=== PATIENT | male | born 1960 | race Caucasian/White ===

== ENCOUNTER 2018-04-26 13:33 | Inpatient (IN) | payer OTHER ==
[2018-04-26 17:31] VITALS: BMI 25.8
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
[2018-04-26] MEDS ORDERED: hydrOXYzine PAMOATE 25 MG CAPSULE (FP) PO PRN (19:45)
[2018-04-26] MEDS ORDERED: METHOCARBAMOL 500 MG TABLET PO PRN (19:45)
[2018-04-26] MEDS ORDERED: BISMUTH SUBSALICYLATE 524 MG/30 ML UD PO PRN (19:45)
[2018-04-26] MEDS ORDERED: MAGNESIUM CITRATE 300 ML BOTTLE PO PRN (19:45)
[2018-04-26] MEDS ORDERED: MAGNESIUM HYDROX 2400MG/30ML ORAL SUSPENSION 30 ML CUP PO PRN (19:45)
[2018-04-26] MEDS ORDERED: chlordiazePOXIDE HCL 25 MG CAPSULE PO PRN (19:45)
[2018-04-26] MEDS ORDERED: MELATONIN 5 MG TABLETS PO PRN (19:45)
[2018-04-26] MEDS ORDERED: MAG HYDROX/AL HYDROX/SIMETH 30 ML UNIT-DOSE CUP PO PRN (19:45)
[2018-04-26] MEDS ORDERED: IBUPROFEN 400 MG TABLET (FP) PO PRN (19:45)
[2018-04-26] MEDS ORDERED: MENTHOL/PHENOL 1 EACH UD MM PRN (19:45)
[2018-04-26] MEDS ORDERED: ACETAMINOPHEN 325 MG TABLET (FP) PO PRN ×2 (19:45)
[2018-04-26] MEDS ORDERED: chlordiazePOXIDE HCL 25 MG CAPSULE PO ONE (20:00)
[2018-04-26] MEDS: THIAMINE HCL 100 MG TABLET (FP) PO SCH (21:29)
[2018-04-26] MEDS: chlordiazePOXIDE HCL 25 MG CAPSULE PO SCH (22:07)
[2018-04-27] MEDS: chlordiazePOXIDE HCL 25 MG CAPSULE PO SCH ×4 (06:54→22:49)
[2018-04-27] MEDS: PRENATAL VITAMINS W/ FOLIC ACID TABLET (FP) PO SCH (10:30)
--- NOTE | 2018-04-27 10:45 | EKG ---
Test Reason : Blood Pressure : / mmHG Vent. Rate : 060 BPM Atrial Rate : 060 BPM P-R Int : 168 ms QRS Dur : 080 ms QT Int : 466 ms P-R-T Axes : 100 032 -20 degrees QTc Int : 466 ms NORMAL SINUS RHYTHM MINIMAL VOLTAGE CRITERIA FOR LVH, MAY BE NORMAL VARIANT NONSPECIFIC T WAVE ABNORMALITY ABNORMAL ECG NO PREVIOUS ECGS AVAILABLE Confirmed by Jeremías Belle MD ([id number]) on 04/27/2018 10:44:52 AM Referred By: AYAKA MCMAHAN Confirmed By:Jeremías Belle MD
[2018-04-27 11:22] LABS: HEMATOCRIT 37.8 % (35.4-49); MCH 34.1 pg (25.7-33.7); MCHC 34.3 g/dl (32.0-35.9); MEAN CELL VOLUME 99.3 fl (80-96); MEAN PLT VOLUME 8.5 fl (7.5-11.1); PLATELET COUNT 303 K/MM3 (134-434); RBC 3.81 M/mm3 (4.00-5.60); RDW 13.1 % (11.9-15.9); WHITE BLOOD COUNT 3.8 K/mm3 (4.0-10.0)
[2018-04-27 12:16] LABS: ANION GAP 5 MMOL/L (8-16); BLOOD UREA NITROGEN 11 mg/dL (7-18); CALCIUM 8.9 mg/dL (8.5-10.1); CHLORIDE 103 mmol/L (98-107); CO2 28 mmol/L (21-32); GLUCOSE,RANDOM 78 mg/dL (74-106); POTASSIUM 4.1 mmol/L (3.5-5.1); SODIUM 136 mmol/L (136-145)
[2018-04-27 12:17] LABS: ALBUMIN 3.5 g/dl (3.4-5.0); BILIRUBIN,TOTAL 0.5 mg/dL (0.2-1); TOT PROT 7.2 g/dl (6.4-8.2)
[2018-04-27 12:18] LABS: ALK PHOS 52 U/L (45-117); SGPT/ALT 21 U/L (13-61)
[2018-04-27 12:32] LABS: SGOT/AST 65 U/L (15-37)
--- NOTE | 2018-04-27 14:52 | PN ---
[facility] CIWA - CIWA Score Nausea/Vomitin-No Nausea/No Vomiting Muscle Tremors: 2 Anxiety: 1-Mildly Anxious Agitation: 3 Paroxysmal Sweats: 1-Minimal Palms Moist Orientation: 1-Uncertain about Date Tacttile Disturbances: 0-None Auditory Disturbances: 0-None Visual Disturbances: 0-None Headache: 1-Very Mild CIWA-Ar Total Score: 9 S Progress Note (SOAP) Subjective: reporting that he is doing well feeling ok today but tired Objective: 04/27/18 14:51 Vital Signs Temperature 97.6 F 04/27/18 13:44 Pulse Rate 94 H 04/27/18 13:44 Respiratory Rate 18 04/27/18 13:44 Blood Pressure 103/64 04/27/18 13:44 O2 Sat by Pulse Oximetry (%) Laboratory Last Values WBC 3.8 K/mm3 (4.0-10.0) L 04/27/18 07:30 RBC 3.81 M/mm3 (4.00-5.60) L 04/27/18 07:30 Hgb 13.0 GM/dL (11.7-16.9) 04/27/18 07:30 Hct 37.8 % (35.4-49) 04/27/18 07:30 MCV 99.3 fl (80-96) H 04/27/18 07:30 MCH 34.1 pg (25.7-33.7) H 04/27/18 07:30 MCHC 34.3 g/dl (32.0-35.9) 04/27/18 07:30 RDW 13.1 % (11.9-15.9) 04/27/18 07:30 Plt Count 303 K/MM3 (134-434) 04/27/18 07:30 MPV 8.5 fl (7.5-11.1) 04/27/18 07:30 Sodium 136 mmol/L (136-145) 04/27/18 07:30 Potassium 4.1 mmol/L (3.5-5.1) 04/27/18 07:30 Chloride 103 mmol/L (98-107) 04/27/18 07:30 Carbon Dioxide 28 mmol/L (21-32) 04/27/18 07:30 Anion Gap 5 MMOL/L (8-16) L 04/27/18 07:30 BUN 11 mg/dL (7-18) 04/27/18 07:30 Creatinine 1.0 mg/dL (0.55-1.3) 04/27/18 07:30 Creat Clearance w eGFR 77.30 (>60) 04/27/18 07:30 Random Glucose 78 mg/dL (74-106) 04/27/18 07:30 Calcium 8.9 mg/dL (8.5-10.1) 04/27/18 07:30 Total Bilirubin 0.5 mg/dL (0.2-1) 04/27/18 07:30 AST 65 U/L (15-37) H 04/27/18 07:30 ALT 21 U/L (13-61) 04/27/18 07:30 Alkaline Phosphatase 52 U/L (45-117) 04/27/18 07:30 Total Protein 7.2 g/dl (6.4-8.2) 04/27/18 07:30 Albumin 3.5 g/dl (3.4-5.0) 04/27/18 07:30 RPR Titer Nonreactive (NONREACTIVE) 04/27/18 07:30 lab noted Assessment: 04/27/18 14:51 withdrawal sx Plan: continue detox
[2018-04-27] MEDS: THIAMINE HCL 100 MG TABLET (FP) PO SCH (22:49)
[2018-04-28] MEDS: chlordiazePOXIDE HCL 25 MG CAPSULE PO SCH ×3 (06:34→18:18)
[2018-04-28] MEDS: PRENATAL VITAMINS W/ FOLIC ACID TABLET (FP) PO SCH (10:59)
--- NOTE | 2018-04-28 13:45 | PN ---
[facility] CIWA - CIWA Score Nausea/Vomitin-No Nausea/No Vomiting Muscle Tremors: 1-None Visible, but [place] Anxiety: 1-Mildly Anxious Agitation: 1-Slight > Activity Paroxysmal Sweats: 1-Minimal Palms Moist Orientation: 0-Oriented Tacttile Disturbances: 0-None Auditory Disturbances: 0-None Visual Disturbances: 0-None Headache: 0-None Present CIWA-Ar Total Score: 4 B[facility] Progress Note (SOAP) Subjective: feeling better more energy well rested talking about aftercare with staff Objective: 04/28/18 13:52 Vital Signs Temperature 98.6 F 04/28/18 10:31 Pulse Rate 74 04/28/18 10:31 Respiratory Rate 16 04/28/18 10:31 Blood Pressure 99/70 04/28/18 10:31 O2 Sat by Pulse Oximetry (%) Laboratory Last Values WBC 3.8 K/mm3 (4.0-10.0) L 04/27/18 07:30 RBC 3.81 M/mm3 (4.00-5.60) L 04/27/18 07:30 Hgb 13.0 GM/dL (11.7-16.9) 04/27/18 07:30 Hct 37.8 % (35.4-49) 04/27/18 07:30 MCV 99.3 fl (80-96) H 04/27/18 07:30 MCH 34.1 pg (25.7-33.7) H 04/27/18 07:30 MCHC 34.3 g/dl (32.0-35.9) 04/27/18 07:30 RDW 13.1 % (11.9-15.9) 04/27/18 07:30 Plt Count 303 K/MM3 (134-434) 04/27/18 07:30 MPV 8.5 fl (7.5-11.1) 04/27/18 07:30 Sodium 136 mmol/L (136-145) 04/27/18 07:30 Potassium 4.1 mmol/L (3.5-5.1) 04/27/18 07:30 Chloride 103 mmol/L (98-107) 04/27/18 07:30 Carbon Dioxide 28 mmol/L (21-32) 04/27/18 07:30 Anion Gap 5 MMOL/L (8-16) L 04/27/18 07:30 BUN 11 mg/dL (7-18) 04/27/18 07:30 Creatinine 1.0 mg/dL (0.55-1.3) 04/27/18 07:30 Creat Clearance w eGFR 77.30 (>60) 04/27/18 07:30 Random Glucose 78 mg/dL (74-106) 04/27/18 07:30 Calcium 8.9 mg/dL (8.5-10.1) 04/27/18 07:30 Total Bilirubin 0.5 mg/dL (0.2-1) 04/27/18 07:30 AST 65 U/L (15-37) H 04/27/18 07:30 ALT 21 U/L (13-61) 04/27/18 07:30 Alkaline Phosphatase 52 U/L (45-117) 04/27/18 07:30 Total Protein 7.2 g/dl (6.4-8.2) 04/27/18 07:30 Albumin 3.5 g/dl (3.4-5.0) 04/27/18 07:30 RPR Titer Nonreactive (NONREACTIVE) 04/27/18 07:30 lab noted Assessment: 04/28/18 13:53 withdrawal sx Plan: continue detox
[2018-04-28] MEDS: chlordiazePOXIDE HCL 10 MG CAPSULE PO SCH (22:35)
[2018-04-28] MEDS: THIAMINE HCL 100 MG TABLET (FP) PO SCH (22:35)
[2018-04-28] MEDS ORDERED: chlordiazePOXIDE HCL 10 MG CAPSULE PO PRN (23:00)
[2018-04-29] MEDS: chlordiazePOXIDE HCL 10 MG CAPSULE PO SCH ×4 (06:12→23:25)
[2018-04-29] MEDS: PRENATAL VITAMINS W/ FOLIC ACID TABLET (FP) PO SCH (10:58)
--- NOTE | 2018-04-29 15:23 | PN ---
[facility] CIWA - CIWA Score Nausea/Vomitin-No Nausea/No Vomiting Muscle Tremors: 1-None Visible, but [place] Anxiety: 0-No Anxiety, at Ease Agitation: 1-Slight > Activity Paroxysmal Sweats: No Perspiration Orientation: 0-Oriented Tacttile Disturbances: 0-None Auditory Disturbances: 0-None Visual Disturbances: 0-None Headache: 0-None Present CIWA-Ar Total Score: 2 S Progress Note (SOAP) Subjective: reporting that he had good experience detox at [facility] patient [facility] to [facility] Objective: 04/29/18 15:31 Vital Signs Temperature 98.1 F 04/29/18 13:45 Pulse Rate 88 04/29/18 13:45 Respiratory Rate 18 04/29/18 13:45 Blood Pressure 103/72 04/29/18 13:45 O2 Sat by Pulse Oximetry (%) Laboratory Last Values WBC 3.8 K/mm3 (4.0-10.0) L 04/27/18 07:30 RBC 3.81 M/mm3 (4.00-5.60) L 04/27/18 07:30 Hgb 13.0 GM/dL (11.7-16.9) 04/27/18 07:30 Hct 37.8 % (35.4-49) 04/27/18 07:30 MCV 99.3 fl (80-96) H 04/27/18 07:30 MCH 34.1 pg (25.7-33.7) H 04/27/18 07:30 MCHC 34.3 g/dl (32.0-35.9) 04/27/18 07:30 RDW 13.1 % (11.9-15.9) 04/27/18 07:30 Plt Count 303 K/MM3 (134-434) 04/27/18 07:30 MPV 8.5 fl (7.5-11.1) 04/27/18 07:30 Sodium 136 mmol/L (136-145) 04/27/18 07:30 Potassium 4.1 mmol/L (3.5-5.1) 04/27/18 07:30 Chloride 103 mmol/L (98-107) 04/27/18 07:30 Carbon Dioxide 28 mmol/L (21-32) 04/27/18 07:30 Anion Gap 5 MMOL/L (8-16) L 04/27/18 07:30 BUN 11 mg/dL (7-18) 04/27/18 07:30 Creatinine 1.0 mg/dL (0.55-1.3) 04/27/18 07:30 Creat Clearance w eGFR 77.30 (>60) 04/27/18 07:30 Random Glucose 78 mg/dL (74-106) 04/27/18 07:30 Calcium 8.9 mg/dL (8.5-10.1) 04/27/18 07:30 Total Bilirubin 0.5 mg/dL (0.2-1) 04/27/18 07:30 AST 65 U/L (15-37) H 04/27/18 07:30 ALT 21 U/L (13-61) 04/27/18 07:30 Alkaline Phosphatase 52 U/L (45-117) 04/27/18 07:30 Total Protein 7.2 g/dl (6.4-8.2) 04/27/18 07:30 Albumin 3.5 g/dl (3.4-5.0) 04/27/18 07:30 RPR Titer Nonreactive (NONREACTIVE) 04/27/18 07:30 lab noted Assessment: 04/29/18 15:32 withdrawal sx Plan: continue detox
[2018-04-29] MEDS: THIAMINE HCL 100 MG TABLET (FP) PO SCH (23:25)
[2018-04-30 09:41] VITALS: BP 90/53; PULSE 88; TEMP 97.7
[2018-04-30] MEDS: PRENATAL VITAMINS W/ FOLIC ACID TABLET (FP) PO SCH (10:21)
[2018-04-30] MEDS: chlordiazePOXIDE HCL 10 MG CAPSULE PO SCH (10:21)
--- NOTE | 2018-04-30 13:09 | PN ---
[facility] Progress Note (SOAP) Subjective: pt doing well continue detox protocol- to day last day O: Vital Signs - 24 hr 04/29/18 04/29/18 04/29/18 13:45 17:51 21:20 Temperature 98.1 F 96.1 F L 99.4 F Pulse Rate 88 75 70 Respiratory 18 18 18 Rate Blood Pressure 103/72 111/66 102/58 L 04/30/18 04/30/18 04/30/18 00:30 03:30 06:33 Temperature 96.8 F L Pulse Rate 72 Respiratory 18 18 18 Rate Blood Pressure 101/65 04/30/18 09:41 Temperature 97.7 F Pulse Rate 88 Respiratory 18 Rate Blood Pressure 90/53 L Laboratory Tests 04/27/18 04/27/18 04/27/18 07:30 07:30 07:30 WBC 3.8 L RBC 3.81 L Hgb 13.0 Hct 37.8 MCV 99.3 H MCH 34.1 H MCHC 34.3 RDW 13.1 Plt Count 303 MPV 8.5 Sodium 136 Potassium 4.1 Chloride 103 Carbon Dioxide 28 Anion Gap 5 L BUN 11 Creatinine 1.0 Creat Clearance w eGFR 77.30 Random Glucose 78 Calcium 8.9 Total Bilirubin 0.5 AST 65 H ALT 21 Alkaline Phosphatase 52 Total Protein 7.2 Albumin 3.5 RPR Titer Nonreactive a/p: continue detox protocol- d/c tomorrow
--- NOTE | 2018-04-30 13:21 | DS ---
[facility] Detox Discharge Summary Admission Date: 04/26/18 Discharge Date: 04/30/18 - History Present History: Alcohol Dependence Pertinent Past History: pt here for alcohol detox- completed: going to [facility] rehab today. - Physical Exam Results Vital Signs: Vital Signs Temperature 97.7 F 04/30/18 09:41 Pulse Rate 88 04/30/18 09:41 Respiratory Rate 18 04/30/18 09:41 Blood Pressure 90/53 L 04/30/18 09:41 O2 Sat by Pulse Oximetry (%) - Treatment Hospital Course: Detox Protocol Followed, Detoxed Safely, Responded well, Discharged Condition Good, Rehab Referral Accepted - Medication Discharge Medications: Ambulatory Orders Unobtainable 04/26/18 - AMA Did Patient Leave Against Medical Advice: No
== END 2018-04-30 13:38 | disposition other institution (70) | DRG 775 ==
LOC: YASAS 13:33 → Y3N 19:53
PROVIDERS: ADMIT Surgery; ATTEND Surgery
PROC: HZ2ZZZZ Detoxification Services for Substance Abuse Treatment (ICD-10-PCS; principal; 2018-04-26)
DX: F10.230 Alcohol dependence with withdrawal, uncomplicated (principal); F32.9 Major depressive disorder, single episode, unspecified; I10 Essential (primary) hypertension; K21.9 Gastro-esophageal reflux disease without esophagitis; N40.0 Benign prostatic hyperplasia without lower urinary tract symptoms; M54.5 Low back pain; G89.29 Other chronic pain; Z86.19 Personal history of other infectious and parasitic diseases
CPT/HCPCS: 36415; 80053; 85027; 86593; 93005; 93010

== ENCOUNTER 2018-04-30 13:57 | Inpatient (IN) | payer OTHER ==
[2018-04-30] MEDS ORDERED: PNEUMOC 13-VAL CONJ-DIP CRM/PF 0.5 ML DISP.SYRIN IM ONE (14:39)
[2018-04-30] MEDS ORDERED: MAG HYDROX/AL HYDROX/SIMETH 30 ML UNIT-DOSE CUP PO PRN (15:27)
[2018-04-30] MEDS ORDERED: IBUPROFEN 400 MG TABLET (FP) PO PRN (15:27)
[2018-04-30] MEDS ORDERED: MENTHOL/PHENOL 1 EACH UD MM PRN (15:27)
[2018-04-30] MEDS ORDERED: guaiFENesin 200 MG/10 ML 10 ML UNIT-DOSE CUPS PO PRN (15:27)
[2018-04-30] MEDS ORDERED: LOPERAMIDE HCL 2 MG CAPSULE PO PRN (15:27)
[2018-04-30] MEDS ORDERED: MAGNESIUM HYDROX 2400MG/30ML ORAL SUSPENSION 30 ML CUP PO PRN (15:27)
[2018-04-30] MEDS ORDERED: ACETAMINOPHEN 325 MG TABLET (FP) PO PRN (15:27)
[2018-04-30] MEDS ORDERED: MAGNESIUM CITRATE 300 ML BOTTLE PO PRN (15:27)
[2018-04-30] MEDS ORDERED: P-EPHED 60MG/TRIPROLIDI 2.5MG TABLET PO PRN (15:27)
--- NOTE | 2018-04-30 15:28 | HP ---
[facility] Rehab Assess/Revision - Admission History Admitted to Rehab from: [facility] Date of Admission to Rehab: 04/30/2018 - Vital signs Vital Signs: Vital Signs Period Temp Pulse Resp BP Sys/Segundo Pulse Ox Last 24 Hr 98.6 F 89 16 103/66 - Findings Detox History & Physical reviewed: Yes Concur with findings: Yes Inpatient Rehab Admission - Rehab Decision to Admit Inpatient rehab admission?: Yes - Initial Determination Are CD services needed?: Yes Free of communicable disease: Yes Not in need of hospitalization: Yes - Rehab Admission Criteria Previous failed treatment: Yes Poor recovery environment: Yes Comorbidities: Yes Lacks judgement: No Patient is meeting Inpatient Rehab admission criteria:: Yes
[2018-04-30] MEDS ORDERED: hydrOXYzine PAMOATE 50 MG CAPSULE (FP) PO PRN (15:29)
[2018-04-30] MEDS ORDERED: cloNIDine HCL 0.1 MG TABLET PO PRN (15:29)
[2018-04-30] MEDS: THIAMINE HCL 100 MG TABLET (FP) PO SCH (21:40)
[2018-04-30] MEDS ORDERED: MELATONIN 5 MG TABLETS PO PRN (22:00)
[2018-05-01] MEDS: PRENATAL VITAMINS W/ FOLIC ACID TABLET (FP) PO SCH (09:40)
[2018-05-01] MEDS ORDERED: FLU VACCINE QUAD 60 MCG/0.5 ML (MDV 18-19) IM ONE (12:00)
[2018-05-01] MEDS ORDERED: PNEUMOCOCCAL 23 VACCINE 0.5 ML VIAL IM ONE (12:00)
[2018-05-01] MEDS: THIAMINE HCL 100 MG TABLET (FP) PO SCH (21:38)
[2018-05-02] MEDS: PRENATAL VITAMINS W/ FOLIC ACID TABLET (FP) PO SCH (09:26)
[2018-05-02] MEDS: THIAMINE HCL 100 MG TABLET (FP) PO SCH (21:24)
[2018-05-03] MEDS: PRENATAL VITAMINS W/ FOLIC ACID TABLET (FP) PO SCH (10:30)
[2018-05-03] MEDS: THIAMINE HCL 100 MG TABLET (FP) PO SCH (22:19)
[2018-05-04] MEDS: PRENATAL VITAMINS W/ FOLIC ACID TABLET (FP) PO SCH (10:00)
[2018-05-04] MEDS: THIAMINE HCL 100 MG TABLET (FP) PO SCH (21:55)
[2018-05-05] MEDS: PRENATAL VITAMINS W/ FOLIC ACID TABLET (FP) PO SCH (09:54)
[2018-05-05] MEDS: THIAMINE HCL 100 MG TABLET (FP) PO SCH (21:23)
[2018-05-06] MEDS: PRENATAL VITAMINS W/ FOLIC ACID TABLET (FP) PO SCH (10:05)
[2018-05-06] MEDS: THIAMINE HCL 100 MG TABLET (FP) PO SCH (21:16)
[2018-05-07] MEDS: PRENATAL VITAMINS W/ FOLIC ACID TABLET (FP) PO SCH (10:00)
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
[2018-05-07] MEDS: THIAMINE HCL 100 MG TABLET (FP) PO SCH (21:13)
[2018-05-08] MEDS: PRENATAL VITAMINS W/ FOLIC ACID TABLET (FP) PO SCH (10:43)
[2018-05-08] MEDS: THIAMINE HCL 100 MG TABLET (FP) PO SCH (22:29)
[2018-05-09] MEDS: PRENATAL VITAMINS W/ FOLIC ACID TABLET (FP) PO SCH (10:28)
[2018-05-09] MEDS: THIAMINE HCL 100 MG TABLET (FP) PO SCH (22:07)
[2018-05-10] MEDS: PRENATAL VITAMINS W/ FOLIC ACID TABLET (FP) PO SCH (10:23)
[2018-05-10] MEDS: THIAMINE HCL 100 MG TABLET (FP) PO SCH (21:46)
[2018-05-11] MEDS: PRENATAL VITAMINS W/ FOLIC ACID TABLET (FP) PO SCH (09:48)
[2018-05-11] MEDS: THIAMINE HCL 100 MG TABLET (FP) PO SCH (21:37)
[2018-05-12] MEDS: PRENATAL VITAMINS W/ FOLIC ACID TABLET (FP) PO SCH (10:04)
[2018-05-12] MEDS: THIAMINE HCL 100 MG TABLET (FP) PO SCH (21:38)
[2018-05-13 07:13] VITALS: BP 98/63; PULSE 86; TEMP 98.3
--- NOTE | 2018-05-13 08:24 | PN ---
[facility] Progress Note (SOAP) Subjective: Client to be discharged today. Objective: 05/13/18 08:22 Vital Signs (72 hours) 05/11/18 05/11/18 05/11/18 00:30 03:30 06:46 Temperature 97.5 F L Pulse Rate 71 Respiratory 18 18 18 Rate Blood Pressure 114/66 05/12/18 05/12/18 05/13/18 00:30 07:10 00:30 Temperature 97.9 F Pulse Rate 73 Respiratory 18 18 20 Rate Blood Pressure 109/67 05/13/18 05/13/18 03:30 07:12 Temperature 98.3 F Pulse Rate 86 Respiratory 16 18 Rate Blood Pressure 98/63 05/13/18 08:23 A= O x 3, neurologically intact, Lungs clear, heart rate regular, s1s2 audible. Assessment: 05/13/18 08:37Diagnoses: ETOH dependance Cocaine Dependance HTN GERD BPH Chronic Back Pain Plan: Client to receive after care at [facility], PCP is Dr. Muhammad in [place]. No home meds to be prescribed. Medically stable for discharge.
[2018-05-13] MEDS: PRENATAL VITAMINS W/ FOLIC ACID TABLET (FP) PO SCH (09:25)
== END 2018-05-13 09:35 | disposition home or self-care (01) | DRG 772 ==
LOC: YASAS 13:57 → Y3W 13:58
PROVIDERS: ADMIT Neuromusculoskeletal Medicine & OMM; ATTEND Neuromusculoskeletal Medicine & OMM
PROC: HZ42ZZZ Group Counseling for Substance Abuse Treatment, Cognitive-Behavioral (ICD-10-PCS; principal; 2018-04-30)
DX: F10.20 Alcohol dependence, uncomplicated (principal); F14.10 Cocaine abuse, uncomplicated; I10 Essential (primary) hypertension; K21.9 Gastro-esophageal reflux disease without esophagitis; N40.0 Benign prostatic hyperplasia without lower urinary tract symptoms; M54.5 Low back pain; G89.29 Other chronic pain; Z87.442 Personal history of urinary calculi; Z87.438 Personal history of other diseases of male genital organs
CPT/HCPCS: 36415; 87389; 90688; 90732; G0008; G0009

== ENCOUNTER 2019-12-30 12:20 | Inpatient (IN) | payer OTHER ==
[2019-12-30 13:05] VITALS: BMI 24.0
[2019-12-30] MEDS ORDERED: ASPIRIN 81 MG CHEWABLE TABLETS PO ONE (13:25)
[2019-12-30] MEDS ORDERED: ASPIRIN 81 MG CHEWABLE TABLETS ONE (13:44)
[2019-12-30 15:16] LABS: BASO % 1.7 % (0-2.0); EOS % 0.9 % (0-4.5); HEMATOCRIT 35.5 % (35.4-49); HEMOGLOBIN 11.5 GM/dL (11.7-16.9); LYMPH % 40.6 % (8-40); MCH 29.5 pg (25.7-33.7); MCHC 32.3 g/dl (32.0-35.9); MEAN CELL VOLUME 91.3 fl (80-96); MEAN PLT VOLUME 8.6 fl (7.5-11.1); MONO % 10.2 % (3.8-10.2); NEUT % 46.6 % (42.8-82.8); PLATELET COUNT 351 K/MM3 (134-434); RBC 3.89 M/mm3 (4.00-5.60); RDW 15.6 % (11.9-15.9); WHITE BLOOD COUNT 4.3 K/mm3 (4.0-10.0)
[2019-12-30 15:29] LABS: ALBUMIN 2.8 g/dl (3.4-5.0); CALCIUM 8.7 mg/dL (8.5-10.1)
[2019-12-30 15:30] LABS: BLOOD UREA NITROGEN 10.9 mg/dL (7-18)
[2019-12-30 15:34] LABS: BILIRUBIN,TOTAL 0.8 mg/dL (0.2-1); TOT PROT 6.5 g/dl (6.4-8.2)
[2019-12-30] MEDS ORDERED: chlordiazePOXIDE HCL 25 MG CAPSULE PO ONE (15:43)
[2019-12-30] MEDS ORDERED: chlordiazePOXIDE HCL 25 MG CAPSULE ONE (16:01)
[2019-12-30] MEDS ORDERED: ENOXAPARIN NA (PORCINE) 60 MG/0.6 ML DISP.SYRIN SQ SCH (17:15)
[2019-12-30] MEDS ORDERED: ENOXAPARIN NA (PORCINE) 80 MG/0.8 ML DISP.SYRIN SQ ONE (17:46)
[2019-12-30] MEDS ORDERED: FUROSEMIDE 40 MG/4 ML INJECTABLE VIAL IVPUSH ONE (19:15)
[2019-12-30] MEDS ORDERED: VANCOMYCIN 1 GM in D5W (PRE-DOCKED) 1,000 MG/250 ML IVPB ONE (19:22)
[2019-12-30] MEDS ORDERED: VANCOMYCIN 1 GRAM (PRE-DOCKED) 1,000 MG/250 ML BAG IVPB ONE (19:32)
[2019-12-30] MEDS ORDERED: FUROSEMIDE 40 MG/4 ML INJECTABLE VIAL ONE (19:32)
[2019-12-30] MEDS ORDERED: THIAMINE HCL 100 MG TABLET (FP) ONE (19:32)
[2019-12-30] MEDS ORDERED: MAGNESIUM SULF 50% (8.12 MEQ/2 ML-1 GM VIAL) IVPB ONE (19:38)
[2019-12-30] MEDS ORDERED: chlordiazePOXIDE HCL 25 MG CAPSULE PO PRN (19:40)
[2019-12-30] MEDS: THIAMINE HCL 100 MG TABLET (FP) PO SCH (19:48)
[2019-12-30 20:17] LABS: URINE AMPHETAMINES NEGATIVE ng/ml (CUTOFF=500); URINE BARBITURATES NEGATIVE ng/ml (CUTOFF=200); URINE BENZODIAZEPINES NEGATIVE ng/ml (CUTOFF=200)
[2019-12-30 20:18] LABS: METHADONE, UR NEGATIVE ng/ml (CUTOFF=300); OPIATES, URI NEGATIVE ng/ml (CUTOFF=300)
[2019-12-30 20:19] LABS: PHENCYCLIDINE,URINE NEGATIVE ng/ml (CUTOFF=25)
[2019-12-30] MEDS ORDERED: PIPERACILLIN/TAZOB 4.5 GM 4.5 GM/100 ML BAG IVPB ONE (20:20)
[2019-12-30 20:21] LABS: COCAINE, UR NEGATIVE ng/ml (CUTOFF=300)
[2019-12-30 20:35] LABS: BASO % 1.5 % (0-2.0); HEMATOCRIT 39.3 % (35.4-49); HEMOGLOBIN 12.4 GM/dL (11.7-16.9); LYMPH % 46.5 % (8-40); MCH 28.6 pg (25.7-33.7); MCHC 31.5 g/dl (32.0-35.9); MEAN CELL VOLUME 90.8 fl (80-96); MEAN PLT VOLUME 8.3 fl (7.5-11.1); MONO % 7.3 % (3.8-10.2); NEUT % 43.7 % (42.8-82.8); PLATELET COUNT 371 K/MM3 (134-434); RBC 4.33 M/mm3 (4.00-5.60); RDW 15.7 % (11.9-15.9)
[2019-12-30] MEDS ORDERED: PIPERACILLIN/TAZOBACTAM 4.5 GM VIAL IVPB ONE (21:26)
[2019-12-30] MEDS ORDERED: DEXTROSE 5%-WATER 100 ML IVPB ONE (21:27)
[2019-12-30 21:30] LABS: INR 2.16 (0.83-1.09); PROTHROMBIN TIME (PATIENT) 25.5 SEC (9.7-13.0)
[2019-12-30] MEDS: PIPERACILLIN/TAZOB 4.5 GM 4.5 GM in DEXTROSE 5%-WATER 100 ML IVPB SCH (22:00)
[2019-12-30 22:35] LABS: HIV INTERPRETATION NEGATIVE (NEGATIVE)
[2019-12-31] MEDS ORDERED: PIPERACILLIN/TAZOBACTAM 4.5 GM VIAL IVPB ONE ×3 (01:44→14:39)
[2019-12-31] MEDS ORDERED: DEXTROSE 5%-WATER 100 ML IVPB ONE ×3 (01:45→14:39)
[2019-12-31] MEDS: PIPERACILLIN/TAZOB 4.5 GM 4.5 GM in DEXTROSE 5%-WATER 100 ML IVPB SCH ×4 (02:32→20:01)
[2019-12-31] MEDS ORDERED: ENOXAPARIN NA (PORCINE) 80 MG/0.8 ML DISP.SYRIN SQ SCH (06:00)
[2019-12-31 08:25] LABS: MAGNESIUM 2.1 mg/dL (1.8-2.4); PHOSPHOROUS 4.1 mg/dL (2.5-4.9)
[2019-12-31 09:05] LABS: POTASSIUM 3.8 mmol/L (3.5-5.1)
[2019-12-31 09:06] LABS: BLOOD UREA NITROGEN 9.8 mg/dL (7-18)
[2019-12-31 09:09] LABS: CREATININE 0.9 mg/dL (0.55-1.3)
[2019-12-31] MEDS: FOLIC ACID 1 MG TABLET (FP) PO SCH (09:17)
[2019-12-31] MEDS: THIAMINE HCL 100 MG TABLET (FP) PO SCH (09:19)
[2019-12-31] MEDS ORDERED: FLU VACCINE (FLULAVAL) PF 60 MCG/0.5 ML SYRINGE 2020-2021 IM ONE (10:00)
[2019-12-31] MEDS: ASPIRIN 81 MG CHEWABLE TABLETS PO SCH (11:22)
[2019-12-31] MEDS: FUROSEMIDE 40 MG/4 ML INJECTABLE VIAL IVPUSH SCH (13:33)
[2019-12-31] MEDS ORDERED: PHYTONADIONE 5 MG TABLET PO ONE (18:09)
[2019-12-31] MEDS ORDERED: PT OWN MED DRAWER 7, Y5N ONE (18:40)
[2020-01-01] MEDS ORDERED: PIPERACILLIN/TAZOBACTAM 3.375 GM VIAL IVPB ONE ×3 (01:15→17:23)
[2020-01-01] MEDS ORDERED: DEXTROSE 5%-WATER - 50 ML IVPB ONE ×3 (01:15→17:23)
[2020-01-01] MEDS: PIPERACILLIN/TAZOB 3.375 GM 3.375 GM in DEXTROSE 5%-WATER - 50 ML IVPB SCH ×3 (02:25→17:26)
[2020-01-01 07:24] LABS: HEMATOCRIT 35.8 % (35.4-49); HEMOGLOBIN 11.9 GM/dL (11.7-16.9); MCH 29.9 pg (25.7-33.7); MCHC 33.3 g/dl (32.0-35.9); MEAN CELL VOLUME 89.8 fl (80-96); MEAN PLT VOLUME 8.5 fl (7.5-11.1); PLATELET COUNT 320 K/MM3 (134-434); RBC 3.99 M/mm3 (4.00-5.60); RDW 16.1 % (11.9-15.9); WHITE BLOOD COUNT 3.5 K/mm3 (4.0-10.0)
[2020-01-01 07:27] LABS: INR 1.82 (0.83-1.09)
[2020-01-01 07:30] LABS: ACTIVATED PTT 28.5 SECONDS (25.2-36.5)
[2020-01-01 07:51] LABS: POTASSIUM 5.3 mmol/L (3.5-5.1)
[2020-01-01 07:55] LABS: ALBUMIN 2.4 g/dl (3.4-5.0); BLOOD UREA NITROGEN 10.2 mg/dL (7-18)
[2020-01-01 07:56] LABS: MAGNESIUM 1.8 mg/dL (1.8-2.4)
[2020-01-01 07:59] LABS: CALCIUM 8.1 mg/dL (8.5-10.1)
[2020-01-01 08:00] LABS: BILIRUBIN,TOTAL 1.2 mg/dL (0.2-1); PHOSPHOROUS 4.3 mg/dL (2.5-4.9); TOT PROT 6.2 g/dl (6.4-8.2)
[2020-01-01] MEDS ORDERED: PT OWN MED DRAWER 7, Y5N ONE ×2 (09:31→13:10)
[2020-01-01] MEDS: FUROSEMIDE 40 MG/4 ML INJECTABLE VIAL IVPUSH SCH (09:40)
[2020-01-01] MEDS: THIAMINE HCL 100 MG TABLET (FP) PO SCH (09:40)
[2020-01-01] MEDS: ASPIRIN 81 MG CHEWABLE TABLETS PO SCH (09:41)
[2020-01-01] MEDS: FOLIC ACID 1 MG TABLET (FP) PO SCH (09:41)
[2020-01-01] MEDS ORDERED: ENOXAPARIN NA (PORCINE) 40 MG/0.4 ML DISP.SYRIN SQ SCH (10:00)
[2020-01-01] MEDS: MAGNESIUM OXIDE 400 MG TABLET (FP) PO SCH ×2 (10:25→21:38)
[2020-01-01] MEDS: SODIUM ZIRCONIUM CYCLOSILICATE (LOKELMA) 5 GM PACKET PO SCH (13:23)
[2020-01-02] MEDS ORDERED: INSULIN (NOVOLOG) ASPART 100 UNITS/ML 10ML VIAL SQ ONE (08:27)
[2020-01-02] MEDS ORDERED: POLYETHYLENE GLYCOL 3350 119 GM BTL PO ONE (08:28)
[2020-01-02] MEDS ORDERED: INSULIN REGULAR HUMAN 100 UNITS/ML *VIAL IVPUSH ONE (08:46)
[2020-01-02] MEDS ORDERED: DEXTROSE 50%-WATER - 25 GM/50 ML VIAL IVPUSH ONE (09:00)
[2020-01-02 09:16] LABS: INR 1.76 (0.83-1.09); PROTHROMBIN TIME (PATIENT) 21.3 SEC (9.7-13.0)
[2020-01-02 09:19] LABS: ACTIVATED PTT 33.4 SECONDS (25.2-36.5)
[2020-01-02 09:41] LABS: ALBUMIN 2.5 g/dl (3.4-5.0); BILIRUBIN,TOTAL 0.9 mg/dL (0.2-1); BLOOD UREA NITROGEN 9.2 mg/dL (7-18); CALCIUM 8.5 mg/dL (8.5-10.1); CREATININE 0.9 mg/dL (0.55-1.3); MAGNESIUM 1.9 mg/dL (1.8-2.4); PHOSPHOROUS 3.5 mg/dL (2.5-4.9); POTASSIUM 3.6 mmol/L (3.5-5.1)
[2020-01-02] MEDS ORDERED: cefTRIAXone SODIUM 1 GM VIAL ONE (11:30)
[2020-01-02] MEDS ORDERED: PT OWN MED DRAWER 7, Y5N ONE (11:30)
[2020-01-02] MEDS ORDERED: DEXTROSE 5%-WATER - 50 ML IVPB ONE (11:31)
[2020-01-02] MEDS: ASPIRIN 81 MG CHEWABLE TABLETS PO SCH (11:36)
[2020-01-02] MEDS: FOLIC ACID 1 MG TABLET (FP) PO SCH (11:36)
[2020-01-02] MEDS: MAGNESIUM OXIDE 400 MG TABLET (FP) PO SCH ×2 (11:37→21:19)
[2020-01-02] MEDS: SODIUM ZIRCONIUM CYCLOSILICATE (LOKELMA) 5 GM PACKET PO SCH (11:37)
[2020-01-02] MEDS: THIAMINE HCL 100 MG TABLET (FP) PO SCH (11:37)
[2020-01-02] MEDS: CEFTRIAXONE 1 GM in DEXTROSE 5%-WATER - 50 ML IVPB SCH (11:37)
[2020-01-02] MEDS: FUROSEMIDE 40 MG/4 ML INJECTABLE VIAL IVPUSH SCH (11:37)
[2020-01-03 07:31] LABS: HEMATOCRIT 39.1 % (35.4-49); HEMOGLOBIN 12.6 GM/dL (11.7-16.9); MCH 28.8 pg (25.7-33.7); MCHC 32.3 g/dl (32.0-35.9); MEAN CELL VOLUME 88.9 fl (80-96); MEAN PLT VOLUME 7.9 fl (7.5-11.1); PLATELET COUNT 361 K/MM3 (134-434); RBC 4.39 M/mm3 (4.00-5.60); RDW 15.8 % (11.9-15.9); WHITE BLOOD COUNT 4.1 K/mm3 (4.0-10.0)
[2020-01-03 07:34] LABS: ALBUMIN 2.6 g/dl (3.4-5.0); CALCIUM 8.5 mg/dL (8.5-10.1)
[2020-01-03 07:35] LABS: BLOOD UREA NITROGEN 10.5 mg/dL (7-18); MAGNESIUM 1.8 mg/dL (1.8-2.4)
[2020-01-03 07:37] LABS: CREATININE 0.9 mg/dL (0.55-1.3); PHOSPHOROUS 2.8 mg/dL (2.5-4.9)
[2020-01-03 07:38] LABS: BILIRUBIN,TOTAL 0.8 mg/dL (0.2-1)
[2020-01-03 07:39] LABS: TOT PROT 6.2 g/dl (6.4-8.2)
[2020-01-03] MEDS ORDERED: DEXTROSE 5%-WATER - 50 ML IVPB ONE (09:57)
[2020-01-03] MEDS ORDERED: cefTRIAXone SODIUM 1 GM VIAL ONE (09:57)
[2020-01-03] MEDS: THIAMINE HCL 100 MG TABLET (FP) PO SCH (10:19)
[2020-01-03] MEDS: FUROSEMIDE 40 MG/4 ML INJECTABLE VIAL IVPUSH SCH (10:19)
[2020-01-03] MEDS: CEFTRIAXONE 1 GM in DEXTROSE 5%-WATER - 50 ML IVPB SCH (10:20)
[2020-01-03] MEDS: FOLIC ACID 1 MG TABLET (FP) PO SCH (10:20)
[2020-01-03] MEDS: SODIUM ZIRCONIUM CYCLOSILICATE (LOKELMA) 5 GM PACKET PO SCH (10:20)
[2020-01-03] MEDS: MAGNESIUM OXIDE 400 MG TABLET (FP) PO SCH ×2 (10:20→23:20)
[2020-01-03] MEDS: ASPIRIN 81 MG CHEWABLE TABLETS PO SCH (10:21)
[2020-01-03] MEDS ORDERED: HEPARIN NA (PORCINE) 5,000 UNITS/ML 1ML VIAL SQ SCH (14:00)
[2020-01-03] MEDS ORDERED: LACTATED RINGERS SOLUTION 1,000 ML/1,000 ML INFUS.BAG IV SCH (21:15)
[2020-01-03] MEDS ORDERED: LACTATED RINGERS SOLUTION 1000 ML INFUS.BAG IV ONE (21:31)
[2020-01-03] MEDS ORDERED: ACETAMINOPHEN 325 MG TABLET (FP) PO ONE (21:32)
[2020-01-03 22:01] LABS: HEMATOCRIT 41.7 % (35.4-49); HEMOGLOBIN 13.4 GM/dL (11.7-16.9); MCH 28.8 pg (25.7-33.7); MCHC 32.1 g/dl (32.0-35.9); MEAN CELL VOLUME 89.6 fl (80-96); MEAN PLT VOLUME 7.5 fl (7.5-11.1); PLATELET COUNT 404 K/MM3 (134-434); RBC 4.65 M/mm3 (4.00-5.60); RDW 16.6 % (11.9-15.9); WHITE BLOOD COUNT 4.3 K/mm3 (4.0-10.0)
[2020-01-03 22:05] LABS: POTASSIUM 3.9 mmol/L (3.5-5.1)
[2020-01-03 22:08] LABS: ALBUMIN 2.8 g/dl (3.4-5.0); CALCIUM 8.7 mg/dL (8.5-10.1)
[2020-01-03 22:11] LABS: CREATININE 1.1 mg/dL (0.55-1.3)
[2020-01-03 22:13] LABS: BILIRUBIN,TOTAL 0.5 mg/dL (0.2-1); TOT PROT 6.7 g/dl (6.4-8.2)
[2020-01-03] MEDS ORDERED: HEPARIN NA (PORCINE) 5,000 UNITS/ML 1ML VIAL IVPUSH PRN ×2 (22:42)
[2020-01-03] MEDS ORDERED: HEPARIN - 25,000 UNIT in SODIUM CHLORIDE 495 ML IV SCH (22:45)
[2020-01-03] MEDS ORDERED: CLOPIDOGREL BISULFATE 300 MG TABLET PO ONE (22:53)
[2020-01-03] MEDS ORDERED: SODIUM CHLORIDE 250 ML IV STA (22:54)
[2020-01-03] MEDS ORDERED: MORPHINE SULFATE 2 MG/ML VIAL IM ONE (23:01)
[2020-01-03] MEDS: ENOXAPARIN NA (PORCINE) 80 MG/0.8 ML DISP.SYRIN SQ SCH (23:22)
[2020-01-04 07:18] LABS: HEMATOCRIT 40.6 % (35.4-49); HEMOGLOBIN 13.2 GM/dL (11.7-16.9); MCH 29.3 pg (25.7-33.7); MCHC 32.5 g/dl (32.0-35.9); MEAN CELL VOLUME 89.9 fl (80-96); MEAN PLT VOLUME 8.1 fl (7.5-11.1); PLATELET COUNT 375 K/MM3 (134-434); RBC 4.51 M/mm3 (4.00-5.60); RDW 16.1 % (11.9-15.9); WHITE BLOOD COUNT 4.1 K/mm3 (4.0-10.0)
[2020-01-04 07:39] LABS: POTASSIUM 3.9 mmol/L (3.5-5.1)
[2020-01-04 07:42] LABS: BLOOD UREA NITROGEN 13.6 mg/dL (7-18); CALCIUM 8.4 mg/dL (8.5-10.1)
[2020-01-04 07:45] LABS: CREATININE 0.7 mg/dL (0.55-1.3)
[2020-01-04 07:46] LABS: PHOSPHOROUS 3.1 mg/dL (2.5-4.9)
[2020-01-04] MEDS ORDERED: cefTRIAXone SODIUM 1 GM VIAL ONE (09:47)
[2020-01-04] MEDS ORDERED: DEXTROSE 5%-WATER - 50 ML IVPB ONE (09:48)
[2020-01-04] MEDS: CEFTRIAXONE 1 GM in DEXTROSE 5%-WATER - 50 ML IVPB SCH (09:53)
[2020-01-04] MEDS: FOLIC ACID 1 MG TABLET (FP) PO SCH (09:54)
[2020-01-04] MEDS: FUROSEMIDE 40 MG/4 ML INJECTABLE VIAL IVPUSH SCH (09:54)
[2020-01-04] MEDS: ASPIRIN 81 MG CHEWABLE TABLETS PO SCH (09:54)
[2020-01-04] MEDS: ENOXAPARIN NA (PORCINE) 80 MG/0.8 ML DISP.SYRIN SQ SCH (09:55)
[2020-01-04] MEDS ORDERED: PANTOPRAZOLE SODIUM 40 MG VIAL IVPUSH SCH (10:00)
[2020-01-04] MEDS ORDERED: AMOX TR/POT CLAV 875MG/125MG TABLETS (FP) PO SCH (17:30)
[2020-01-04 18:40] VITALS: BP 99/73; PULSE 83; TEMP 98
[2020-01-04] MEDS ORDERED: ATORVASTATIN CA 80 MG TABLET (FP) PO SCH (22:00)
[2020-01-05] MEDS ORDERED: CLOPIDOGREL BISULFATE 75 MG TABLET (FP) PO SCH (10:00)
== END 2020-01-04 19:15 | disposition short-term general hospital (02) | DRG 194 ==
LOC: JER 12:20 → OBSVTOIN 18:59 → JERBED 18:59 → J4S 21:01
PROVIDERS: ATTEND Student in an Organized Health Care Education/Training Program
DX: I11.0 Hypertensive heart disease with heart failure (principal); I50.21 Acute systolic (congestive) heart failure; K21.9 Gastro-esophageal reflux disease without esophagitis; N40.0 Benign prostatic hyperplasia without lower urinary tract symptoms; J69.0 Pneumonitis due to inhalation of food and vomit; F14.10 Cocaine abuse, uncomplicated; R11.2 Nausea with vomiting, unspecified; F10.239 Alcohol dependence with withdrawal, unspecified; I21.4 Non-ST elevation (NSTEMI) myocardial infarction; E87.70 Fluid overload, unspecified; J98.4 Other disorders of lung; R07.89 Other chest pain; R94.31 Abnormal electrocardiogram [ECG] [EKG]; I47.2 Ventricular tachycardia; E87.6 Hypokalemia; I42.0 Dilated cardiomyopathy
CPT/HCPCS: 36415; 71045-TC-FY; 71046-TC-FY; 71275-TC; 76705-TC; 80048; 80053; 80307; 81241; 82550; 82553; 82728; 83615; 83690; 83735; 83880; 84100; 84443; 84484; 85025; 85027; 85379; 85384; 85610; 85651; 85730; 86140; 86480; 87040; 87086; 87389; 87804; 87807; 87899; 93005; 93010; 93306-TC; 93970-TC; 99285-25; C9803; G0008; J1644; Q2036; Q9967; U0003